=== PATIENT | female | born 2000 | race Two or more races ===

== ENCOUNTER 2022-12-19 09:51 | Emergency (ER) | payer OTHER, SELFPAY ==
[2022-12-19 10:00] VITALS: BP 119/80; PULSE 76; RESP 18; TEMP 36.6; O2SAT 100; BMI 39.9
[2022-12-19 10:19] VITALS: O2SAT 100
--- NOTE | 2022-12-19 10:23 | ED.GENADUL1 ---
HPI - General Adult General Chief complaint: Abdominal Pain Stated complaint: isuues 12 weeks Time Seen by Provider: 12/19/22 10:23 Source: patient Mode of arrival: ambulance Limitations: no limitations History of Present Illness HPI narrative: Patient presents emergency department complaining of abdominal pain. Patient states she is having suprapubic pain for 3 days. Patient denies any flank pain, hematuria, dysuria. Feels a cramping. She denies any nausea, vomiting, diarrhea, or constipation. She denies any trauma. She denies any vaginal bleeding, discharge. Patient is 11 weeks gestation. She's had an ultrasound done At 6 weeks. Her CATALYTIC CONVERTER OPERATOR is [facility]. She denies any fever, chills, or cough. She denies any chest pain, shortness of breath. She has not taking anything at home for the pain. Patient denies any trauma. Related Data Home Medications Medication Instructions Recorded Confirmed vit no.133-ferrous 1 tab PO QDAY 12/19/22 12/19/22 fumarate 28 mg-folic acid 800 mcg tablet () Previous Rx's Medication Instructions Recorded cephalexin 500 mg capsule 500 mg PO Q8H 7 days #21 caps 12/19/22 Allergies Allergy/AdvReac Type Severity Reaction Status Date / Time No Known Drug Allergies Allergy Verified 12/19/22 10:06 Review of Systems ROS Status of ROS 10 or more systems reviewed and unremarkable except as noted in history and below Exam Narrative Exam Narrative: Nurses notes and vital signs reviewed and patient is not hypoxic. General: Nontoxic, Well-appearing and in no apparent distress. Skin: Warm, dry, no pallor noted. No Rash Head: Normocephalic, atraumatic. Neck: Supple, non-tender. Eye: Pupils are equal, round and EOMI. No scleral icterus. Ears, Nose, Mouth, and Throat: TM clear, no posterior oropharynx erythema or nasal mucosal hypertrophy, uvula is mid-line Oral mucosa is moist Cardiovascular: Regular Rate and Rhythm without murmur, gallop or rub. Respiratory: No accessory muscle use or respiratory distress. Lungs are clear to auscultation, no wheezing, rales or rhonchi Chest Wall: no tenderness Back: No midline thoracic or lumbar vertebral tenderness. No CVA tenderness Musculoskeletal: normal ROM, no calf or popliteal tenderness, no lower extremity edema/swelling GI: Abdomen is soft, non-distended. Normal bowel sounds. No masses appreciated. mild llq tenderness to palpation. No rebound, guarding, or rigidity noted. Neurological: A&O x4. No cranial nerve dysfunction observed. No truncal ataxia. Moves all extremities. Sensation intact. Psychiatric: Cooperative and interactive. Normal mood and affect. Constitutional Vital Signs - 24 hr 12/19/22 10:00 12/19/22 10:19 Temperature 98 F Pulse Rate [Monitor] 76 Respiratory Rate 18 Blood Pressure [Right Arm] 119/80 H Pulse Oximetry 100 100 Oxygen Delivery Method Room Air Room Air Course Vital Signs Vital signs: Vital Signs Temperature 98 F 12/19/22 10:00 Pulse Rate 76 12/19/22 10:00 Respiratory Rate 18 12/19/22 10:00 Blood Pressure 119/80 H 12/19/22 10:00 Pulse Oximetry 100 12/19/22 10:00 Oxygen Delivery Method Room Air 12/19/22 10:00 Temperature 98 F 12/19/22 10:00 Pulse Rate 76 12/19/22 10:00 Respiratory Rate 18 12/19/22 10:00 Blood Pressure 119/80 H 12/19/22 10:00 Pulse Oximetry 100 12/19/22 10:19 Oxygen Delivery Method Room Air 12/19/22 10:19 Medical Decision Making MDM Narrative Medical decision making narrative: Studies were done. All results discussed with patient.Patient is felt to have a urinary tract infection. Given a gram of Rocephin IM. Patient started on Keflex. abdomen is benign, nonsurgical. She will follow-up with CATALYTIC CONVERTER OPERATOR. At this time the patient is without objective evidence of an acute process requiring hospitalization or inpatient management. The patient has remained hemodynamically stable. No additional indication for emergent studies at this time. I answered all questions. Discussed discharge instructions including standard anticipatory guidance and what should prompt a return to the emergency department, including if they get worse are not getting better or develops any new or concerning symptoms. I've given them specific time frame in which to follow-up, and who to follow-up with. The patient demonstrates understanding. Patient is nontoxic and stable for discharge with outpatient follow-up. This note was created with the assistance of a speech recognition program. Although the intention is to generate documents that actually reflects the content of the visit, no guarantees can be provided that every mistake has been identified and corrected by editing. Lab Data Lab results reviewed: Yes I reviewed the patient's lab results Labs: Lab Results 12/19/22 12/19/22 Range/Units 10:48 11:05 WBC 6.2 (4.0-11.0) 10^3/uL RBC 4.59 (4.20-5.40) 10^6/uL Hgb 11.6 L (12.0-16.0) g/dL Hct 36.4 (36.0-48.0) % MCV 79.3 L (81.0-99.0) fL MCH 25.3 L (26.7-34.0) pg MCHC 31.9 (29.9-35.2) g/dL RDW 14.6 (11.0-15.0) % Plt Count 273 (150-450) 10^3/uL MPV 8.2 L (9.5-13.5) fL Neut % (Auto) 75.0 (43.0-75.0) % Lymph % (Auto) 16.4 L (20.5-60.0) % [place] % (Auto) 7.1 (1.7-12.0) % Eos % (Auto) 1.0 (0.9-7.0) % Baso % (Auto) 0.3 (0.2-2.0) % Neut # (Auto) 4.6 (1.4-6.5) 10^3/uL Lymph # (Auto) 1.0 L (1.2-3.8) 10^3/uL [place] # (Auto) 0.4 (0.3-0.8) 10^3/uL Eos # (Auto) 0.1 (0.0-0.7) 10^3/uL Baso # (Auto) 0.0 (0.0-0.1) 10^3/uL Abs Immat Gran (auto) 0.01 (0.00-0.03) 10^3/uL Imm/Tot Granulo (auto) 0.2 (0.0-0.5) % Sodium 138 (136-145) mmol/L Potassium 3.2 L (3.5-5.1) mmol/L Chloride 104 (98-107) mmol/L Carbon Dioxide 23.8 (21.0-32.0) mmol/L Anion Gap 13.4 BUN 5.0 L (7.0-18.0) mg/dL Creatinine 0.57 (0.55-1.02) mg/dL Est GFR ( Amer) >60 (>=60) Est GFR (Non-Af Amer) >60 (>=60) BUN/Creatinine Ratio 8.8 Glucose 79 (74-106) mg/dL Calcium 8.8 (8.5-10.1) mg/dL Total Bilirubin 0.3 (0.2-1.0) mg/dL AST 22 (15-37) U/L ALT 30 (14-59) U/L Alkaline Phosphatase 95 (46-116) U/L Total Protein 7.1 (6.4-8.2) g/dL Albumin 3.0 L (3.4-5.0) g/dL Globulin 4.1 g/dL Albumin/Globulin Ratio 0.7 Urine Color Lt. yellow (YELLOW) Urine Clarity Clear (CLEAR) Urine pH 6.5 (5.0-9.0) Ur Specific [place] 1.020 (1.005-1.025) Urine Protein Negative (NEG/TRACE) mg/dL Urine Glucose (UA) Negative (NEGATIVE) mg/dL Urine Ketones Negative (NEGATIVE) mg/dL Urine Occult Blood Negative (NEGATIVE) Urine Nitrite Negative (NEGATIVE) Urine Bilirubin Negative (NEGATIVE) Urine Urobilinogen 1.0 (0.2-1.0) EU/dL Ur Leukocyte Esterase Moderate A (NEGATIVE) Urine RBC 0-2 (0-2) #/HPF Urine WBC 5-10 A (NONE SEEN) #/HPF Ur Squamous Epith Cells Moderate A (NONE/RARE) #/LPF Urine Crystals None seen (None Seen) #/HPF Urine Bacteria Small A (NONE SEEN) #/HPF Urine Casts None seen (NONE SEEN) #/LPF Urine Mucus None seen (NONE SEEN) Discharge Plan Discharge Chief Complaint: Abdominal Pain Clinical Impression: UTI (urinary tract infection) in in first trimester, Abdominal pain Patient Disposition: Home, Self-Care Time of Disposition Decision: 13:16 Condition: Good Mode of Transportation: Private Vehicle Prescriptions / Home Meds: New cephalexin 500 mg capsule 500 mg PO Q8H 7 Days Qty: 21 0RF No Action 28-800 mg-mcg tablet 1 tab PO QDAY Instructions: Urinary Tract Infection in (ED) Additional Instructions: Drink plenty of fluids. Take the medication as instructed. Follow up with her CATALYTIC CONVERTER OPERATOR in the morning. Return to the emergency department with a consequence results discussed. Stand Alone Forms: Portal Instructions Referrals: Physician,Non-Staff, MD [Primary Care Provider] - 1 week Discharge Date/Time: 12/19/22 13:26
--- NOTE | 2022-12-19 10:43 | US_ITS ---
[place] [id number] Patient Name: NADIA GARCIAS MRN: [id number] date: 2000 Sex: F Assigned Patient Location: ER Current Patient Location: ER Accession/Order Number: [id number] Exam Date: 12/19/2022 11:00 Report Date: 12/19/2022 12:58 At the request of: ELEAZAR GARCIAS Procedure: US OB transvaginal PROCEDURE: US OB transvaginal, 12/19/2022 11:00 AM EDT CLINICAL INDICATIONS: , vaginal bleeding 2 para 0 AB 1 LMP 09/16/2022 COMPARISON: None TECHNIQUE: Transvaginal first trimester obstetric sonogram, grayscale and color assessment. FINDINGS: Transvaginal cervical length 4.7 cm, closed. Living twin intrauterine is identified. There are 2 gestational sacs identified. 2 fetuses with separate yolk sac are noted. Thickened membrane is seen. Dichorionic diamniotic twin is favored. Presenting fetus a: Mean gestational sac size: 4.9 cm Grey[place]-rump length: 5.0 cm Sonographic gestational age: 11 weeks 5 days +/- week Sonographic ROBEL 07/05/2023 Heart rate: 169 bpm Fetus B: Mean gestational sac size: 3.2 cm [place]-rump length: 4.7 cm Sonographic gestational age: 10 weeks 2 days +/- 5 days Sonographic ROBEL 07/15/2023 Heart rate: 167 bpm. No perigestational hemorrhage. There is mild pelvic free fluid in the cul-de-sac. Maternal right ovary: Not identified. Maternal left ovary: 3.5 x 1.7 x 3.1 cm, volume 10 mL. Normal sonographic morphology. IMPRESSION: 1. Living diamniotic dichorionic twin intrauterine . 2. Presenting fetus A; sonographic gestational age 11 weeks 1 day +/- days, sonographic ROBEL 07/09/2023 3. Fetus B: Sonographic gestational age: 10 weeks 2 days +/- 5 days, sonographic ROBEL 07/15/2023 4. No perigestational hemorrhage 5. Nonvisualization maternal right ovary 6. Normal maternal left ovarian sonographic morphology 7. 4.7 cm transvaginal cervical length, closed 8. Nonspecific mild pelvic free fluid in the maternal cul-de-sac Electronically authenticated by: DANDRE COYLE Date: 12/19/2022 12:58
[2022-12-19 11:13] LABS: Bilirubin Urine NEGATIVE (NEGATIVE); Blood Urine NEGATIVE (NEGATIVE); Clarity Urine CLEAR (CLEAR); Color Urine LT. YELLOW (YELLOW); Glucose Urine UA NEGATIVE (NEGATIVE); Ketones Urine NEGATIVE (NEGATIVE); Leukocyte Esterase Urine MODERATE (NEGATIVE); Nitrite Urine NEGATIVE (NEGATIVE); Protein Urine NEGATIVE (NEG/TRACE); pH Urine 6.5 (5.0-9.0)
[2022-12-19 11:17] LABS: Basophils Percent Auto 0.3 % (0.2-2.0); Eosinophils Absolute Auto 0.1 10^3/uL (0.0-0.7); Hematocrit 36.4 % (36.0-48.0); Hemoglobin 11.6 g/dL (12.0-16.0); Immature Granulocytes Abs Auto 0.01 10^3/uL (0.00-0.03); Immature Granulocytes Pct Auto 0.2 % (0.0-0.5); Lymphocytes Percent Auto 16.4 % (20.5-60.0); Mean Corpuscular HGB Conc 31.9 g/dL (29.9-35.2); Mean Corpuscular Hemoglobin 25.3 pg (26.7-34.0); Mean Corpuscular Volume 79.3 fL (81.0-99.0); Mean Platelet Volume 8.2 fL (9.5-13.5); Monocytes Absolute Auto 0.4 10^3/uL (0.3-0.8); Monocytes Percent Auto 7.1 % (1.7-12.0); Neutrophils Absolute Auto 4.6 10^3/uL (1.4-6.5); Platelet Count 273 10^3/uL (150-450); Red Blood Count 4.59 10^6/uL (4.20-5.40); Red Cell Distribution Width 14.6 % (11.0-15.0); White Blood Count 6.2 10^3/uL (4.0-11.0)
[2022-12-19 11:28] LABS: Alanine Aminotransferase 30 U/L (14-59); Albumin Globulin Ratio 0.7; Alkaline Phosphatase 95 U/L (46-116); Anion Gap 13.4; Aspartate Amino Transferase 22 U/L (15-37); BUN Creatinine Ratio 8.8; Bilirubin Total 0.3 mg/dL (0.2-1.0); Calcium 8.8 mg/dL (8.5-10.1); Carbon Dioxide 23.8 mmol/L (21.0-32.0); Chloride 104 mmol/L (98-107); Estimated GFR (African America >60 (>=60); Estimated GFR (Non-African Ame >60 (>=60); Globulin 4.1 g/dL; Glucose 79 mg/dL (74-106); Potassium 3.2 mmol/L (3.5-5.1); Sodium 138 mmol/L (136-145); Total Protein 7.1 g/dL (6.4-8.2)
[2022-12-19 11:53] LABS: Bacteria Urine SMALL #/HPF (NONE SEEN); Mucus Urine NONE SEEN (NONE SEEN); RBC Urine 0-2 #/HPF (0-2)
[2022-12-19 11:54] LABS: Cast Seen? NONE SEEN #/LPF (NONE SEEN); Crystals Seen? None Seen #/HPF (None Seen); Squamous Epithelial Cell Urine MODERATE #/LPF (NONE/RARE)
== END 2022-12-19 13:26 | disposition home or self-care (01) ==
PROVIDERS: Emergency Provider Emergency Medicine
DX: O23.41 Unspecified infection of urinary tract in pregnancy, first trimester (principal); N39.0 Urinary tract infection, site not specified; O26.891 Other specified pregnancy related conditions, first trimester; R10.9 Unspecified abdominal pain; Z3A.11 11 weeks gestation of pregnancy
CPT/HCPCS: 36415; 76817; 80053; 81001; 85025; 96372; 99284

== ENCOUNTER 2025-04-28 09:41 | Emergency (ER) | payer OTHER, SELFPAY ==
[2025-04-28 09:49] VITALS: BP 110/72; PULSE 78; TEMP 36.4; O2SAT 98; BMI 37.3
--- OUTSIDE RECORDS SUMMARY | 2025-04-28 09:55 | XMS_ITS | Encounter Summary ---
Author Organization [facility] tem Address [facility] [id number] [address] [place] [address] Care Team Providers Care Statue Carver Name Role Phone Bonnie sEtrada MD Primary Care Provider [phone] Encounter Details Date Type Department Care Team (Late st Contact Info) Description 11/26/2020 Documentation [facility] [address] [place] [id number] Dianelys Barrett MD [address] [place] [address], [address] [id number] Social History Tobacco Use Types Packs/Day Years Used Date Smoking Tobacco: Never Smokeless Tobacco: Never Alcohol Use Standard Drinks/Week Comments Yes 0 (1 standard drink = 0.6 oz pur e alcohol) socially Childcare Answer Date Recorded Childcare Unknown 12/26/2018 Employment Answer Date Recorded Employment Unknown 12/26/2018 Comments Unknown Sex and Gender Information Value Date Recorded Sex Assigned at Not on file Legal Sex Female 11:55 AM EDT Gender Identity Not on file Sexual Orientation Not on file COVID-19 Exposure Response Date Recorded In the last month, have you been in contact with someone who was confirmed or suspected to have Coronavirus / COVID-19? No / Unsure 11/25/2020 10:29 AM EDT documented as of this encounter Plan of Treatment Not on file documented as of this encounter Visit Diagnoses Not on filedocumented in this encounter Care Teams Statue Carver Relationship Specialty Start Date End Date Bonnie Estrada MD [address] [address] PCP - General Family Medicine 12/20/23 documented as of this encounter
--- NOTE | 2025-04-28 10:03 | ED_ITS ---
HPI HPI - General Adult General Chief complaint: Abdominal Pain Stated complaint: DIARRHEA, ABDOMINAL PAIN Time Seen by Provider: 04/28/25 09:55 Source: patient Mode of arrival: walk-in Limitations: no limitations History of Present Illness HPI narrative: 24-year-old female presents for diarrhea. She states she had a little bit on and off for the past week but about 4:00 this morning she started having much more diarrhea. No fever or vomiting. Her boyfriend is here with similar symptoms and he has had symptoms for about 3 days. Related Data Previous Rx's ?Medication ?Instructions ?Recorded dicyclomine 20 mg tablet 20 mg PO QID PRN abdominal p ain 04/28/25 #20 tabs Allergies Allergy/AdvReac Type Severity Reaction Status Date / Time No Known Drug Allergies Allergy Verified 04/28/25 09:54 Opioid HPI Opioid Management Most Recent Opioid Data: Last Pain Scale 9 Today, 10:48 Last MAR Pain Assessment Today, 10:48 Review of Systems ROS Narrative A ten point review of systems is negative except as noted above. PFSH PFSH Social History Little interest or pleasure in doing things: not at all Feeling down, depressed, or hopeless: not at all Exam Narrative Exam Narrative: Nurses note and vital signs reviewed and patient is not hypoxic. General:The patient appears well and in no apparent distress.Patient is resting comfortably on cart. Skin:Warm, dry. There is no rash noted. Head:Normocephalic, atraumatic Eye: Normal conjunctiva, no drainage Ears, Nose, Mouth, and Throat: oral mucosa is moist. Nares patent. Cardiovascular:Regular Rate and Rhythm Respiratory:Patient is in no distress, no accessory muscle use, lungs are clear to auscultation, no wheezing, rales or rhonchi Back:non-tender GI: Obese and nontender Musculoskeletal: The patient has no evidence of calf tenderness, no pitting edema, symmetrical pulses noted bilaterally Neurological:A&O, normal speech Psychiatric:Cooperative Constitutional Vital Signs, click to edit/add: Last Vital Signs Temp 97.6 F 04/28/25 09:49 Pulse 89 04/28/25 11:46 Resp 18 04/28/25 09:49 BP 110/72 04/28/25 09:49 Pulse Ox 88 L 04/28/25 11:46 O2 Del Method Room Air 04/28/25 11:46 Course Vital Signs Vital signs: Vital Signs Temperature 97.6 F 04/28/25 09:49 Pulse Rate 78 04/28/25 09:49 Respiratory Rate 18 04/28/25 09:49 Blood Pressure 110/72 04/28/25 09:49 Pulse Oximetry 98 04/28/25 09:49 Oxygen Delivery Method Room Air 04/28/25 09:49 Temperature 97.6 F 04/28/25 09:49 Pulse Rate 89 04/28/25 11:46 Respiratory Rate 18 04/28/25 09:49 Blood Pressure 110/72 04/28/25 09:49 Pulse Oximetry 88 L 04/28/25 11:46 Oxygen Delivery Method Room Air 04/28/25 11:46 Medical Decision Making MDM Narrative Medical decision making narrative: The patient presented with diarrhea and was able to give a stool specimen and culture is pending. She is complaining of some abdominal pain so she was given IV Toradol and seemed to break out in a rash and was having itching. She was given IV Benadryl and is now improved and is discharged home with a prescription for Bentyl. She was given IV fluids as well. Treatment diagnosis and follow-up were discussed with the patient. Differential Diagnosis Differential Diagnosis: Gastroenteritis, dehydration Lab Data Lab results reviewed: Yes I reviewed the patient's lab results Labs: Lab Results 04/28/25 Range/Units 10:29 WBC 13.1 H (4.0-11.0) 10^3/uL RBC 5.55 H (4.20-5.40) 10^6/uL Hgb 13.5 (12.0-16.0) g/dL Hct 42.3 (36.0-48.0) % MCV 76.2 L (81.0-99.0) fL MCH 24.3 L (26.7-34.0) pg MCHC 31.9 (29.9-35.2) g/dL RDW 15.9 H (11.0-15.0) % Plt Count 550 H (150-450) 10^3/uL MPV 8.5 L (9.5-13.5) fL Neut % (Auto) 80.6 H (43.0-75.0) % Lymph % (Auto) 10.8 L (20.5-60.0) % [place] % (Auto) 6.5 (1.7-12.0) % Eos % (Auto) 1.5 (0.9-7.0) % Baso % (Auto) 0.2 (0.2-2.0) % Neut # (Auto) 10.6 H (1.4-6.5) 10^3/uL Lymph # (Auto) 1.4 (1.2-3.8) 10^3/uL [place] # (Auto) 0.9 H (0.3-0.8) 10^3/uL Eos # (Auto) 0.2 (0.0-0.7) 10^3/uL Baso # (Auto) 0.0 (0.0-0.1) 10^3/uL Abs Immat Gran (auto) 0.05 H (0.00-0.03) 10^3/uL Imm/Tot Granulo (auto) 0.4 (0.0-0.5) % Sodium 139 (136-145) mmol/L Potassium 4.3 (3.5-5.1) mmol/L Chloride 110 H (98-107) mmol/L Carbon Dioxide 17.1 L (21.0-32.0) mmol/L Anion Gap 16.2 BUN 19.0 H (7.0-18.0) mg/dL Creatinine 0.74 (0.55-1.02) mg/dL Est GFR ( Amer) >60 (>=60 mL/min/1.73m^2) Est GFR (Non-Af Amer) >60 (>=60 mL/min/1.73m^2) BUN/Creatinine Ratio 25.7 Glucose 141 H (74-106) mg/dL Calcium 8.9 (8.5-10.1) mg/dL Serum HCG, Qual Negative (NEGATIVE) Discharge Plan Discharge Chief Complaint: Abdominal Pain Clinical Impression: Diarrhea Patient Disposition: Home, Self-Care Time of Disposition Decision: 12:36 Condition: Good Mode of Transportation: Private Vehicle Prescriptions / Home Meds: New dicyclomine 20 mg tablet 20 mg PO QID PRN (Reason: abdominal pain) Qty: 20 0RF Print Language: Prydeinig Instructions: Acute Diarrhea (ED) Referrals: Bonnie Estrada MD [Primary Care Provider] - 1 week
[2025-04-28] MEDS: 0.9 % SODIUM CHLORIDE 1,000 ML 1000 ML IV (10:30)
[2025-04-28 10:44] LABS: Hematocrit 42.3 % (36.0-48.0); Hemoglobin 13.5 g/dL (12.0-16.0); Immature Granulocytes Abs Auto 0.05 10^3/uL (0.00-0.03); Immature Granulocytes Pct Auto 0.4 % (0.0-0.5); Lymphocytes Absolute Auto 1.4 10^3/uL (1.2-3.8); Mean Corpuscular HGB Conc 31.9 g/dL (29.9-35.2); Mean Corpuscular Hemoglobin 24.3 pg (26.7-34.0); Mean Corpuscular Volume 76.2 fL (81.0-99.0); Platelet Count 550 10^3/uL (150-450); Red Blood Count 5.55 10^6/uL (4.20-5.40); White Blood Count 13.1 10^3/uL (4.0-11.0)
[2025-04-28] MEDS: KETOROLAC TROMETHAMINE 30 MG/ML VIAL IVP (10:48)
[2025-04-28 10:54] LABS: Anion Gap 16.2; Blood Urea Nitrogen 19.0 mg/dL (7.0-18.0); Calcium 8.9 mg/dL (8.5-10.1); Carbon Dioxide 17.1 mmol/L (21.0-32.0); Chloride 110 mmol/L (98-107); Estimated GFR (African America >60 (>=60 mL/min/1.73m^2); Estimated GFR (Non-African Ame >60 (>=60 mL/min/1.73m^2); Glucose 141 mg/dL (74-106); Potassium 4.3 mmol/L (3.5-5.1); Sodium 139 mmol/L (136-145)
[2025-04-28] MEDS: ALBUTEROL SULFATE 2.5 MG/3 ML VIAL NEB IH (11:42)
[2025-04-28 11:46] VITALS: PULSE 89; O2SAT 88
[2025-04-28] MEDS: DIPHENHYDRAMINE HCL 50 MG/ML VIAL 25 MG IVP (12:01)
--- NOTE | 2025-04-28 12:08 | PC.NURSE ---
11:35: Patient rings call light and states she is itchy and believes she is reacting to the IV toradol that was given. Dr. Joseph informed. 11:37: Dr. Joseph at bedside. 12:05: Patient medicated with IV benadryl. Red rash noted on bilateral legs. Pt states it's very itchy. Will monitor.
[2025-04-28 12:55] VITALS: BP 107/71; PULSE 99; O2SAT 100
== END 2025-04-28 12:59 | disposition home or self-care (01) ==
PROVIDERS: Emergency Provider Emergency Medicine; PCP Family Medicine
DX: R19.7 Diarrhea, unspecified (principal); R10.84 Generalized abdominal pain
CPT/HCPCS: 36415; 80048; 84703; 85025; 87045; 87046; 87427; 94640; 96361; 96374; 96375; 99284; J1200; J1885

== ENCOUNTER 2025-05-02 14:21 | Emergency (ER) | payer OTHER, SELFPAY ==
[2025-05-02 14:28] VITALS: BP 136/79; PULSE 96; TEMP 36.7; O2SAT 100; BMI 37.3
[2025-05-02 15:26] LABS: Alanine Aminotransferase 23 U/L (14-59); Albumin Globulin Ratio 0.8; Albumin Level 3.3 g/dL (3.4-5.0); Alkaline Phosphatase 159 U/L (46-116); Anion Gap 13.6; Aspartate Amino Transferase 19 U/L (15-37); Blood Urea Nitrogen 18.0 mg/dL (7.0-18.0); Calcium 8.4 mg/dL (8.5-10.1); Carbon Dioxide 17.1 mmol/L (21.0-32.0); Chloride 110 mmol/L (98-107); Estimated GFR (African America >60 (>=60 mL/min/1.73m^2); Estimated GFR (Non-African Ame >60 (>=60 mL/min/1.73m^2); Globulin 4.2 g/dL; Glucose 104 mg/dL (74-106); Lipase 27.0 U/L (16.0-77.0); Potassium 3.7 mmol/L (3.5-5.1); Sodium 137 mmol/L (136-145); Total Protein 7.5 g/dL (6.4-8.2)
[2025-05-02] MEDS: 0.9 % SODIUM CHLORIDE 1,000 ML 1000 ML IV (15:34)
[2025-05-02 15:39] LABS: Hematocrit 43.5 % (36.0-48.0); Hemoglobin 13.8 g/dL (12.0-16.0); Immature Granulocytes Abs Auto 0.04 10^3/uL (0.00-0.03); Immature Granulocytes Pct Auto 0.4 % (0.0-0.5); Lymphocytes Absolute Auto 1.4 10^3/uL (1.2-3.8); Mean Corpuscular HGB Conc 31.7 g/dL (29.9-35.2); Mean Corpuscular Hemoglobin 24.1 pg (26.7-34.0); Mean Corpuscular Volume 76.0 fL (81.0-99.0); Platelet Count 542 10^3/uL (150-450); Red Blood Count 5.72 10^6/uL (4.20-5.40); White Blood Count 9.5 10^3/uL (4.0-11.0)
[2025-05-02] MEDS: LIDOCAINE HCL 1% 100 MG/10 ML MDV INJ (15:40)
[2025-05-02 16:02] LABS: Glucose Urine UA NEGATIVE (NEGATIVE)
[2025-05-02 16:12] LABS: HCG Qualitative Urine* NEGATIVE (NEGATIVE)
[2025-05-02 16:13] LABS: Cast Seen? NONE SEEN #/LPF (NONE SEEN); Crystals Seen? None Seen #/HPF (None Seen)
[2025-05-02 16:14] LABS: Urine Culture Indicated NO
--- NOTE | 2025-05-02 16:27 | ED.GENADUL1 ---
HPI HPI - General Adult General Chief complaint: Abdominal Pain Stated complaint: DIARRHEA, ABDOMINAL PAIN Time Seen by Provider: 05/02/25 14:34 Mode of arrival: walk-in History of Present Illness HPI narrative: 24-year-old female presents emergency room chief complaint of nausea and diarrhea. She states she recently had a Nexplanon placed and had similar symptoms after the Nexplanon was in her arm for several months. She has an appointment with her [employer] to have the Nexplanon removed but continues to have the nausea and diarrhea. Patient denies a known history of diverticulitis. Her abdomen is soft and nontender to palpation. She states she is currently on an antibiotic for UTI. Patient is requesting Nexplanon to be removed. Related Data Previous Rx's ?Medication ?Instructions ?Recorded dicyclomine 20 mg tablet 20 mg PO QID PRN abdominal pain 04/28/25 #20 tabs Allergies Allergy/AdvReac Type Severity Reaction Status Date / Time ketorolac (From Toradol) Allergy Intermediate Wheezing Verified 05/02/25 14:28 Opioid HPI Opioid Management Most Recent Opioid Data: Last Pain Scale 9 04/28/25, 10:48 Last MAR Pain Assessment 04/28/25, 10:48 Review of Systems ROS Status of ROS 10 or more systems reviewed and unremarkable except as noted in history and below PFSH PFSH Social History Little interest or pleasure in doing things: not at all Feeling down, depressed, or hopeless: several days Exam Narrative Exam Narrative: All Systems are negative except as noted/marked.All systems reviewed and otherwise negative Nurses note and vital signs reviewed and patient is not hypoxic. General: The patient appears well and in no apparent distress. Patient is resting comfortably on cart. Skin: Warm, dry, no pallor noted. There is no rash noted. Head: Normocephalic, atraumatic Eye: Normal conjunctiva, no drainage, EOMI. PERRL Ears, Nose, Mouth, and Throat: oral mucosa is moist. Nares patent. Mouth without vesicles. Ear canals patent. Tm's without Erythema Cardiovascular: Regular Rate and Rhythm Respiratory: Patient is in no distress, no accessory muscle use, lungs are clear to auscultation, no wheezing, rales or rhonchi Back: non-tender, no CVA tenderness bilaterally to percussion. GI: Normal bowel sounds, no tenderness to palpation, no masses appreciated. No rebound, guarding, or rigidity noted. Musculoskeletal: Nexplanon palpated to the left upper extremity, the patient has no evidence of calf tenderness, no pitting edema, symmetrical pulses noted bilaterally Neurological: A&O x4, normal speech Psychiatric: Cooperative Constitutional Vital Signs, click to edit/add: Last Vital Signs Temp 98.1 F 05/02/25 14:28 Pulse 96 H 05/02/25 14:28 Resp 16 05/02/25 14:28 BP 136/79 05/02/25 14:28 Pulse Ox 100 05/02/25 14:28 O2 Del Method Room Air 05/02/25 14:28 Course Vital Signs Vital signs: Vital Signs Temperature 98.1 F 05/02/25 14:28 Pulse Rate 96 H 05/02/25 14:28 Respiratory Rate 16 05/02/25 14:28 Blood Pressure 136/79 05/02/25 14:28 Pulse Oximetry 100 05/02/25 14:28 Oxygen Delivery Method Room Air 05/02/25 14:28 Temperature 98.1 F 05/02/25 14:28 Pulse Rate 96 H 05/02/25 14:28 Respiratory Rate 16 05/02/25 14:28 Blood Pressure 136/79 05/02/25 14:28 Pulse Oximetry 100 05/02/25 14:28 Oxygen Delivery Method Room Air 05/02/25 14:28 Medical Decision Making [facility] Narrative Medical decision making narrative: 24-year-old female presents emergency room chief complaint of nausea and diarrhea. She states she recently had a Nexplanon placed and had similar symptoms after the Nexplanon was in her arm for several months. She has an appointment with her [employer] to have the Nexplanon removed but continues to have the nausea and diarrhea. Patient denies a known history of diverticulitis. Her abdomen is soft and nontender to palpation. She states she is currently on an antibiotic for UTI. Patient is requesting Nexplanon to be removed. Patient presenting here with chief complaint of adverse reaction she believes to the Nexplanon. I am certified in Nexplanon insertion and removal. I was able to remove the Nexplanon without difficulty. Area was anesthetized with 1% lidocaine solution, small incision with 11 blade was used the Nexplanon was then easily removed. Area was cleaned and dressed with a sterile dressing. Patient is told to leave the dressing on for at least 24 hours. Urinalysis CBC and CMP were all reviewed. Patient will continue taking her antibiotics as prescribed. Patient did receive a liter of fluids here in the emergency room states she feels much improved. Patient be discharged home with nausea diarrhea instructions. She is going to follow-up as scheduled with her [employer]. Differential Diagnosis Differential Diagnosis: Gastritis, nausea vomiting, diarrhea Medical Records Medical records reviewed: Yes I reviewed the patient's medical records Lab Data Lab results reviewed: Yes I reviewed the patient's lab results Labs: Lab Results 05/02/25 05/02/25 05/02/25 Range/Units 14:55 15:34 15:49 WBC 9.5 (4.0-11.0) 10^3/uL RBC 5.72 H (4.20-5.40) 10^6/uL Hgb 13.8 (12.0-16.0) g/dL Hct 43.5 (36.0-48.0) % MCV 76.0 L (81.0-99.0) fL MCH 24.1 L (26.7-34.0) pg MCHC 31.7 (29.9-35.2) g/dL RDW 15.5 H (11.0-15.0) % Plt Count 542 H (150-450) 10^3/uL MPV 8.5 L (9.5-13.5) fL Neut % (Auto) 74.3 (43.0-75.0) % Lymph % (Auto) 14.5 L (20.5-60.0) % [place] % (Auto) 7.0 (1.7-12.0) % Eos % (Auto) 3.6 (0.9-7.0) % Baso % (Auto) 0.2 (0.2-2.0) % Neut # (Auto) 7.0 H (1.4-6.5) 10^3/uL Lymph # (Auto) 1.4 (1.2-3.8) 10^3/uL [place] # (Auto) 0.7 (0.3-0.8) 10^3/uL Eos # (Auto) 0.3 (0.0-0.7) 10^3/uL Baso # (Auto) 0.0 (0.0-0.1) 10^3/uL Abs Immat Gran (auto) 0.04 H (0.00-0.03) 10^3/uL Imm/Tot Granulo (auto) 0.4 (0.0-0.5) % Sodium 137 (136-145) mmol/L Potassium 3.7 (3.5-5.1) mmol/L Chloride 110 H (98-107) mmol/L Carbon Dioxide 17.1 L (21.0-32.0) mmol/L Anion Gap 13.6 BUN 18.0 (7.0-18.0) mg/dL Creatinine 0.70 (0.55-1.02) mg/dL Est GFR ( Amer) >60 (>=60 mL/min/1.73m^2) Est GFR (Non-Af Amer) >60 (>=60 mL/min/1.73m^2) BUN/Creatinine Ratio 25.7 Glucose 104 (74-106) mg/dL Calcium 8.4 L (8.5-10.1) mg/dL Total Bilirubin 0.2 (0.2-1.0) mg/dL AST 19 (15-37) U/L ALT 23 (14-59) U/L Alkaline Phosphatase 159 H (46-116) U/L Total Protein 7.5 (6.4-8.2) g/dL Albumin 3.3 L (3.4-5.0) g/dL Globulin 4.2 g/dL Albumin/Globulin Ratio 0.8 Lipase 27.0 (16.0-77.0) U/L Urine Color Yellow (YELLOW) Urine Clarity Sl cloudy (CLEAR) Urine pH 6.5 (5.0-9.0) Ur Specific [place] 1.025 (1.005-1.025) Urine Protein 100 A (NEG/TRACE) mg/dL Urine Glucose (UA) Negative (NEGATIVE) mg/dL Urine Ketones Negative (NEGATIVE) mg/dL Urine Occult Blood Large A (NEGATIVE) Urine Nitrite Negative (NEGATIVE) Urine Bilirubin Negative (NEGATIVE) Urine Urobilinogen 0.2 (0.2-1.0) EU/dL Ur Leukocyte Esterase Negative (NEGATIVE) Urine RBC 20-50 A (0-2) #/HPF Urine WBC 2-5 A (NONE SEEN) #/HPF Ur Squamous Epith Cells Few A (NONE/RARE) #/LPF Urine Crystals None seen (None Seen) #/HPF Urine Bacteria Trace A (NONE SEEN) #/HPF Urine Casts None seen (NONE SEEN) #/LPF Urine Mucus Trace A (NONE SEEN) Ur Culture Indicated? No Urine HCG, Qual Negative (NEGATIVE) Discharge Plan Discharge Chief Complaint: Abdominal Pain Clinical Impression: Diarrhea, Gastroenteritis, Encounter for Nexplanon removal Patient Disposition: Home, Self-Care Time of Disposition Decision: 16:31 Condition: Good Prescriptions / Home Meds: No Action dicyclomine 20 mg tablet 20 mg PO QID PRN (Reason: abdominal pain) Qty: 20 0RF Print Language: Occitan Instructions: Gastroenteritis (ED), Acute Diarrhea (ED) Referrals: Bonnie Estrada MD [Primary Care Provider] - 1 week
[2025-05-02 16:44] VITALS: BP 115/74; PULSE 68; O2SAT 98
== END 2025-05-02 16:44 | disposition home or self-care (01) ==
PROVIDERS: Physician Assistant; Emergency Provider Emergency Medicine; PCP Family Medicine
DX: R19.7 Diarrhea, unspecified (principal); Z30.46 Encounter for surveillance of implantable subdermal contraceptive
CPT/HCPCS: 36415; 80053; 81001; 83690; 84703; 85025; 96361; 96374; 99285; J2405